=== PATIENT | female | born 1960 | race Caucasian/White ===

== ENCOUNTER 2017-01-24 11:30 | Outpatient (CLI) | payer OTHER ==
[~2017-01-24] VITALS: Ht 165.1 cm; Wt 67.1 kg
[~2017-01-24 11:30] MED LIST: CEPH500C PO; PREMPRO
[2017-01-24] MEDS ORDERED: GLUC-116 PO (11:34)
[2017-01-24] MEDS ORDERED: FEXO180T84 PO (11:34)
[2017-01-24] MEDS ORDERED: MULT-141 PO (11:34)
[2017-01-24] MEDS ORDERED: CALC600T12 PO (11:34)
== END 2017-01-24 12:30 ==
LOC: PREOP 11:30
PROVIDERS: ATTEND Surgery
DX: Z01.818 Encounter for other preprocedural examination (principal); Z86.010 Personal history of colon polyps

== ENCOUNTER 2017-01-26 07:53 | Day surgery (SDC) | payer BC, OTHER ==
[~2017-01-26] VITALS: Ht 165.1 cm; Wt 67.1 kg
[~2017-01-26 07:53] MED LIST changes: +CALC600T12 PO; +FEXO180T84 PO; +GLUC-116 PO; +MULT-141 PO
[2017-01-26] MEDS ORDERED: NS IV 500 ML 500 ML ONE (08:29)
[2017-01-26] MEDS ORDERED: NS IV 500 ML 500 ML IV PRN (08:31)
[2017-01-26 08:54] VITALS: BP 137/96
[2017-01-26] MEDS ORDERED: MIDAZOLAM 2 MG/2 ML (VERSED) VIAL ONE ×3 (10:40)
[2017-01-26] MEDS ORDERED: fentaNYL INJECTION 100 MCG/2 ML AMP ONE (10:40)
[2017-01-26] MEDS: MIDAZOLAM 2 MG/2 ML (VERSED) VIAL IVP PRN ×3 (10:43→10:49)
[2017-01-26] MEDS: fentaNYL INJECTION 100 MCG/2 ML AMP IVP PRN ×2 (10:44→10:47)
--- NOTE | 2017-01-26 10:45 | Conscious Sedation/ASA ---
Conscious Sedation Pre-Proced Time Reviewed: 10:45 ASA Class: 1 Airway Mallampati Classification: ([place] appropriate class) I. II. III, IV Lungs Heart ASA score ASA 1: a normal healthy patient ASA 2: a patient with a mild systemic disease (mid diabetes, controlled hypertension, obesity ASA 3: a patient with a severe systemic disease that limits activity (angina , COPD, prior Myocardial infarction) ASA 4: a patient with an incapacitating disease that is a constant threat to life (CHF, renal failure) ASA 5: a moribund patient not expected to survive 24 hrs. (ruptured aneurysm) ASA 6: a declared brain patient whose organs are being harvested. For emergent operations, add the letter E after the classification Grade 1 Sedation Plan: Discussed options with patient/fam Note The patient is an appropriate candidate to undergo the planned procedure, sedation, and anesthesia. The patient immediately re-assessed prior to indication. JOSE RUIZ MD Jan 26, 2017 10:45 am
--- NOTE | 2017-01-26 10:45 | History & Physicial ---
History of Present Illness History of Present Illness Reason for visit/HPI to undergo surveillance colonoscopy. History of a tubulovillous adenoma and a family history of polyps Date of Admission Date Seen by Provider: Jan 26, 2017 Time Seen by Provider: 10:45 I consulted on this patient on 01/26/17 10:43 Attending Physician Estuardo Ruiz MD Admitting Physician Ed Nice DO Consult Allergies and Home Medications Allergies Coded Allergies: Sulfa (Sulfonamide Antibiotics) (Unverified Allergy, Unknown, 01/24/17) Home Medications Calcium Carbonate 600 Mg Tablet, 600 MG PO BID, (Reported) Fexofenadine HCl 180 Mg Tablet, 180 MG PO DAILY, (Reported) Gluc/Cortez-MSM#2/C/D3/Jag/Born 1 Each Tablet, 1 EACH PO DAILY, (Reported) Multivit with Calcium,Iron,Min 1 Each Tablet, 1 EACH PO DAILY, (Reported) Past Sfgptbe-Bigatr-Otaybl Hx Patient Social History Marrital Status: Employed/Student: employed Alcohol Use: Denies Use Recreational Drug Use: No Smoking Status: Never a Smoker Recent Foreign Travel: No Contact w/other who traveled: No Recent Hopitalizations: No Immunizations Up To Date Tetanus Booster (TDap): Unknown Date of Influenza Vaccine: Apr 11, 2016 Seasonal Allergies Seasonal Allergies: Yes Surgeries HX Surgeries: Yes (BILAT CARPAL TUNNEL, KNEE SCOPE X2) Surgeries: Bladder Surgery, Orthopedic Respiratory Hx Respiratory Disorders: No Cardiovascular Hx Cardiovascular Disorders: No Neurological Hx Neurological Disorders: No 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 System Hx 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 Disorders: No Sexually Transmitted Disease: No HIV/AIDS: No Female 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 Disorders: Denies Genitourinary Hx Genitourinary Disorders: No Gastrointestinal Hx Gastrointestinal Disorders: Yes Gastrointestinal Disorders: Polyps Musculoskeletal Hx Musculoskeletal Disorders: No Endocrine Hx Endocrine Disorders: No HEENT HX ENT Disorders: No (GLASSES/CONTACTS, LOWER PARTIAL DENTURE) Loss of Vision: Bilateral Hearing Impairment: Denies Cancer Hx Cancer: No Psychosocial Hx Psychiatric Problems: No Integumentary HX Skin/Integumentary Disorder: No Blood Transfusions Hx Blood Disorders: No Adverse Reaction to a Blood Tr: No (N/A) Family Medical History Significant Family History: No Pertinent Family Hx Constitutional: no symptoms reported EENTM: no symptoms reported Respiratory: no symptoms reported Cardiovascular: no symptoms reported Gastrointestinal: no symptoms reported Genitourinary: no symptoms reported Skin: no symptoms reported Psychiatric/Neurological: No Symptoms Reported Physical Exam Vital Signs Vital Sign - Last 12Hours 01/26/17 08:54 Temp 96.2 Pulse 73 Resp 18 B/P (MAP) 137/96 Pulse Ox 98 O2 Delivery Room Air Capillary Refill : General Appearance: No Apparent Distress HEENT: Normal ENT Inspection Neck: Normal Inspection Respiratory: Lungs Clear Cardiovascular: Regular Rate, Rhythm Gastrointestinal: Non Tender, Soft Rectal: Deferred Extremity: Normal Inspection Neurologic/Psychiatric: Alert, Oriented x3 Skin: Warm/Dry Assessment/Plan Assessment and Plan lady with a history of tubulovillous adenoma of the sigmoid colon. Family history of colon polyps. Reviewed the details of colonoscopy and she is in agreement to proceed Problems: ESTUARDO RUIZ MD Jan 26, 2017 10:45 am
--- NOTE | 2017-01-26 11:01 | Endo Procedure Record ---
Endo Procedure Report Date of Procedure Jan 26, 2017 Surgeon (s) JOSE RUIZ MD Post Procedure/Op Diagnosis normal colonoscopy Procedure Performed colonoscopy to cecum Description of Procedure Anesthesia Type: Conscious Sedation Specimen(s) collected/removed none Description of the Procedure Indication for procedure: This lady came in for surveillance colonoscopy. In 2010, a tubular adenoma of the sigmoid colon was excised. In addition, she has a family history of colon polyps as well. Informed consent was obtained after reviewing the procedure in detail. Description of the procedure: She was placed in left lateral decubitus position and her vital signs were monitored. Conscious sedation was achieved using Versed and fentanyl. Digital rectal examination was unremarkable. The colonoscope was then introduced into the rectum and advanced to the cecum. The scope was then withdrawn slowly and the mucosa examined in a systematic fashion. There was no abnormality. She tolerated the procedure well and was taken back to the nursing area in a stable condition. Impression: Normal surveillance colonoscopy. Recommend repeating in 5 years. Copies To: OLEG MARTÍNEZ XAVIER M MD Jan 26, 2017 11:01 am
--- NOTE | 2017-01-26 11:02 | Discharge Inst-Simple/Standard ---
Discharge Inst-Standard Discharge Medications New, Converted or Re-Newed RX: Other Patient Instructions/Follow Up Plan of Care/Instructions/FU: repeat colonoscopy in 5 years Activity as Tolerated: Yes Discharge Diet: No Restrictions JOSE RUIZ MD Jan 26, 2017 11:02 am
[2017-01-26 11:15] VITALS: BP 124/80
[2017-01-26 11:45] VITALS: BP 132/84
[2017-01-26 11:52] VITALS: BP 132/84
== END 2017-01-26 11:56 | disposition home or self-care (01) ==
LOC: ENDO 07:53
PROVIDERS: ATTEND Surgery
DX: Z12.11 Encounter for screening for malignant neoplasm of colon (principal); Z86.010 Personal history of colon polyps; Z83.71 Family history of colonic polyps

== ENCOUNTER 2017-11-30 06:15 | Emergency (ER) | payer BC, OTHER ==
[~2017-11-30] VITALS: Ht 165.1 cm; Wt 71.7 kg
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
[2017-11-30] MEDS ORDERED: fentaNYL INJECTION 100 MCG/2 ML AMP ONE (06:21)
[2017-11-30] MEDS ORDERED: fentaNYL INJECTION 100 MCG/2 ML AMP IVP ONE (06:30)
[2017-11-30] MEDS ORDERED: NS IV 500 ML 500 ML IV ONE (06:33)
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
[2017-11-30] MEDS ORDERED: MELO15TA39 (06:46)
--- NOTE | 2017-11-30 06:54 | Diagnostic Imaging Report ---
INDICATION: Left wrist fracture. Three views of left wrist show a dorsally impacted and angulated fracture of the distal radius. This is comminuted. The distal ulna appears to be grossly intact. IMPRESSION: Comminuted, dorsally impacted and dorsally angulated fracture of the distal radius. Dictated by: Dictated on workstation # [id number]
[2017-11-30] MEDS ORDERED: HYDROmorphone 2 MG/ML VIAL (DILAUDID) ONE (07:00)
[2017-11-30] MEDS ORDERED: HYDROmorphone 1 MG/ML (DILAUDID) 1 ML SYRINGE IV STA (07:00)
[2017-11-30] MEDS ORDERED: MIDAZOLAM 5 MG/5 ML (VERSED) VIAL IVP ONE (07:00)
[2017-11-30] MEDS ORDERED: HYDROcodone/APAP 5 MG/325 MG (LORTAB) TAB PO ONE (08:00)
--- NOTE | 2017-11-30 08:17 | Diagnostic Imaging Report ---
INDICATION: Right wrist fracture, status post reduction. TIME OF EXAMINATION: 07:58 a.m. COMPARISON: Correlation is made with prior study earlier the same day. FINDINGS: Two views of the right wrist demonstrate wrist encased in a fiberglass cast. The comminuted impacted fracture of the distal radius is again noted. There has been some improvement in the degree of dorsal displacement of the distal fracture fragment, however there does continue to be approximately 8 mm of dorsal displacement. There is also mild dorsal angulation of the distal fracture fragment. The distal ulna is intact. The carpal alignment is normal. Metacarpals are intact. IMPRESSION: Mild improvement in the dorsal displacement of the distal radius fracture fragment when compared with the prior exam. There continues to be approximately 8 mm of dorsal displacement and mild dorsal angulation. Dictated by: Dictated on workstation # [id number]
[2017-11-30 08:21] VITALS: BP 103/78
== END 2017-11-30 08:21 | disposition home or self-care (01) ==
LOC: EDUNIT# 06:15 → ER 06:17
DX: S52.501A Unspecified fracture of the lower end of right radius, initial encounter for closed fracture (principal); R40.2142 Coma scale, eyes open, spontaneous, at arrival to emergency department; R40.2252 Coma scale, best verbal response, oriented, at arrival to emergency department; R40.2362 Coma scale, best motor response, obeys commands, at arrival to emergency department; Z88.2 Allergy status to sulfonamides; Z86.010 Personal history of colon polyps; W01.0XXA Fall on same level from slipping, tripping and stumbling without subsequent striking against object, initial encounter
CPT/HCPCS: 29505; 73100; 73110; 93041; 96361; 96374; 96375

== ENCOUNTER → 2019-04-02 | Outpatient (CLI) | payer BC, OTHER ==
[~2019-04-02] MED LIST changes: +MELO15TA39
--- NOTE | 2019-04-02 08:28 | Diagnostic Imaging Report ---
PROCEDURE: US Gallbladder. TECHNIQUE: Multiple real-time grayscale images were obtained over the right upper quadrant in various projections. INDICATION: Abdominal pain and bloating. COMPARISON: None. FINDINGS: The size and echogenicity of liver is normal. There is no mass or intrahepatic biliary ductal dilatation. Portal venous flow is normal. The gallbladder wall and lumen are normal. There are no gallstones. Common bile duct is normal at 4 mm. The pancreas, IVC, right kidney and aorta are normal. No ascites is seen. IMPRESSION: Negative right upper quadrant ultrasound. Dictated by: Dictated on workstation # [id number]
== END ==
LOC: RAD 06:57
PROVIDERS: ATTEND Internal Medicine
DX: M72.2 Plantar fascial fibromatosis (principal); R10.13 Epigastric pain; R14.0 Abdominal distension (gaseous)
CPT/HCPCS: 76705

== ENCOUNTER → 2019-04-11 | Outpatient (CLI) | payer BC, OTHER ==
[2019-04-11] MEDS: CATHETER FLUSH 10 ML SYR IV PRN (12:24)
--- NOTE | 2019-04-11 14:51 | Diagnostic Imaging Report ---
INDICATION: Epigastric pain. TECHNIQUE: Patient was administered 5.4 mCi of technetium-99m Choletec intravenously, and imaging over the abdomen was performed. At 45 minutes, patient ingested 8 ounces of Ensure, and a gallbladder ejection fraction was calculated. FINDINGS: Homogeneous uptake of activity by the liver is noted. There is prompt excretion of activity into the gallbladder and common duct. Normal passage of activity into the small bowel is seen. There is also reflux of activity into the stomach. Gallbladder ejection fraction is abnormally low at 30%. Normal values are 33% or greater. IMPRESSION: 1. No evidence of cystic duct or common bile duct obstruction. 2. Gastric bile reflux. 3. Low gallbladder ejection fraction of 30%. Dictated by: Dictated on workstation # [id number]
== END ==
LOC: CARD 12:04
PROVIDERS: ATTEND Internal Medicine
DX: K21.9 Gastro-esophageal reflux disease without esophagitis (principal); R10.13 Epigastric pain
CPT/HCPCS: 78227